=== PATIENT | female | born 1980 | race Caucasian/White ===

== ENCOUNTER 2016-11-29 15:34 | Emergency (ER) | payer OTHER ==
[~2016-11-29] VITALS: Ht 162.6 cm; Wt 79.4 kg
[2016-11-29] MEDS ORDERED: TRAZ50TA4 PO (15:47)
[2016-11-29] MEDS ORDERED: SERT-155 PO (15:47)
[2016-11-29] MEDS ORDERED: ROBA500T PO (15:47)
[2016-11-29] MEDS ORDERED: LEVO75TA4 PO (15:47)
[2016-11-29] MEDS ORDERED: NAPR500T2 PO (15:47)
[2016-11-29] MEDS ORDERED: NORC1TAB4 PO (15:47)
[2016-11-29] MEDS ORDERED: PANTOPRAZOLE 40MG INJ (PROTONIX) (C9113) IV ONE (16:30)
[2016-11-29 16:41] LABS: BASO % 0.2 % (0.0-1.0); EOS # 0.1 K/mm3 (0.0-0.50); EOS % 1.8 % (0.0-3.0); LARGE UNSTAINED CELL # 0.1 K/mm3 (0.0-0.4); LARGE UNSTAINED CELL % 0.6 % (0.0-4.0); LYMPH # 1.4 K/mm3 (1.5-4.5); LYMPH % 17.7 % (24.0-44.0); MEAN CORPUSCULAR HEMOGLOBIN 29.3 pg (27.0-33.0); MEAN CORPUSCULAR HGB CONC 33.1 g/dl (32.0-36.5); MEAN CORPUSCULAR VOLUME 88.6 fl (80.0-96.0); MONO # 0.4 K/mm3 (0.0-0.8); MONO % 5.3 % (0.0-5.0); NEUTROPHILS # 5.7 K/mm3 (1.8-7.7); NEUTROPHILS % 74.4 % (36.0-66.0); PLATELET COUNT, AUTOMATED 232 k/mm3 (150-450); RED CELL DISTRIBUTION WIDTH 13.6 % (11.5-14.5); WHITE BLOOD COUNT 7.7 K/mm3 (4.0-10.0)
[2016-11-29 16:55] LABS: ALBUMIN 4.1 GM/DL (3.2-5.2); ALBUMIN/GLOBULIN RATIO 1.28 (1.00-1.93); ALKALINE PHOSPHATASE 76 U/L (45-117); ALT/SGPT 43 U/L (12-78); ANION GAP 6 MEQ/L (8-16); AST/SGOT 26 U/L (15-37); BILIRUBIN,DIRECT < 0.1 MG/DL (0.0-0.2); BILIRUBIN,TOTAL 0.4 MG/DL (0.2-1.0); BLOOD UREA NITROGEN 12 MG/DL (7-18); CALCIUM LEVEL 8.3 MG/DL (8.5-10.1); CARBON DIOXIDE LEVEL 27 MEQ/L (21-32); CHLORIDE LEVEL 104 MEQ/L (98-107); CREATININE FOR GFR 0.98 MG/DL (0.55-1.02); GLOMERULAR FILTRATION RATE > 60.0 (>60); GLUCOSE, FASTING 126 MG/DL (70-105); POTASSIUM SERUM 3.8 MEQ/L (3.5-5.1); SODIUM LEVEL 137 MEQ/L (136-145); TOTAL PROTEIN 7.3 GM/DL (6.4-8.2)
[2016-11-29] MEDS ORDERED: PROT1TAB2 PO (17:19)
[2016-11-29 17:26] VITALS: BP 93/55
--- NOTE | 2016-11-30 20:58 | ECGEPIP ---
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
== END 2016-11-29 17:35 | disposition home or self-care (01) ==
LOC: M ED 16:38
DX: K29.60 Other gastritis without bleeding (principal); E03.9 Hypothyroidism, unspecified; F33.9 Major depressive disorder, recurrent, unspecified; G89.29 Other chronic pain; M54.9 Dorsalgia, unspecified; Z96.9 Presence of functional implant, unspecified; Z79.899 Other long term (current) drug therapy
CPT/HCPCS: 80048; 80076; 83690; 85025; 93005; 93041; 96374; 99284; C9113; G0463

== ENCOUNTER → 2016-12-16 | Outpatient (REF) | payer OTHER ==
[~2016-12-16] MED LIST: LEVO75TA4 PO; NAPR500T2 PO; NORC1TAB4 PO; PROT1TAB2 PO; ROBA500T PO; SERT-155 PO; TRAZ50TA4 PO
== END ==
LOC: M SFHCLERA 10:05
PROVIDERS: ATTEND Physician Assistant
DX: R50.9 Fever, unspecified (principal)

== ENCOUNTER → 2017-02-02 | Outpatient (REF) | payer OTHER | LOC: M LAB REF 13:24 | PROVIDERS: ATTEND Family Medicine | DX: B02.9 Zoster without complications (principal) ==

== ENCOUNTER 2017-05-20 21:07 | Emergency (ER) | payer OTHER ==
[~2017-05-20] VITALS: Ht 162.6 cm; Wt 77.3 kg
[~2017-05-20 21:07] MED LIST changes: -NAPR500T2 PO; +NAPR500T3 PO; +TRAZ50TA11 PO; -TRAZ50TA4 PO
[2017-05-20 21:08] VITALS: BP 118/67
[2017-05-20] MEDS ORDERED: COLA100C5 PO (21:24)
[2017-05-20] MEDS ORDERED: VITA500C14 PO (21:24)
[2017-05-20] MEDS ORDERED: WELLTAB40 PO (21:24)
[2017-05-20] MEDS ORDERED: AMBI10TA PO (21:24)
[2017-05-20] MEDS ORDERED: PRED10TA2 PO (21:54)
[2017-05-20] MEDS ORDERED: predniSONE 20 MG TAB PO ONE (22:00)
== END 2017-05-20 22:08 | disposition home or self-care (01) ==
LOC: M ED 21:07
DX: L50.9 Urticaria, unspecified (principal); T78.40XA Allergy, unspecified, initial encounter; E03.9 Hypothyroidism, unspecified; M54.5 Low back pain; F33.9 Major depressive disorder, recurrent, unspecified; Z79.899 Other long term (current) drug therapy

== ENCOUNTER 2017-06-18 19:43 | Emergency (ER) | payer OTHER ==
[~2017-06-18] VITALS: Ht 162.6 cm; Wt 75.0 kg
[~2017-06-18 19:43] MED LIST changes: +AMBI10TA PO; +COLA100C5 PO; +PRED10TA2 PO; +VITA500C14 PO; +WELLTAB40 PO
[2017-06-18] MEDS ORDERED: ZYRT10TA2 PO (20:06)
[2017-06-18] MEDS ORDERED: diphenhydrAMINE INJ 50MG/ML VIAL (J1200) IV ONE (20:45)
[2017-06-18] MEDS ORDERED: methylPREDNISolone INJ 125 MG/2 ML VIAL (J2930) IV ONE (20:45)
[2017-06-18] MEDS ORDERED: FAMOTIDINE IV BAG 20 MG in APPROPRIATE DILUENT 1 EA IV ONE (20:45)
[2017-06-18 21:01] LABS: EOS % 0.4 % (0.0-3.0); IMMATURE GRANULOCYTE % 0.1 % (0-0); LYMPH # 1.5 10^3/uL (1.5-4.5); LYMPH % 20.6 % (24.0-44.0); MEAN CORPUSCULAR HEMOGLOBIN 27.6 pg (27.0-33.0); MEAN CORPUSCULAR HGB CONC 33.3 g/dl (32.0-36.5); MEAN CORPUSCULAR VOLUME 82.7 fl (80.0-96.0); MONO # 0.6 10^3/uL (0.0-0.8); MONO % 7.9 % (0.0-5.0); NEUTROPHILS # 5.1 10^3/uL (1.8-7.7); PLATELET COUNT, AUTOMATED 229 10^3/uL (150-450); RED CELL DISTRIBUTION WIDTH 14.7 % (11.5-14.5); WHITE BLOOD COUNT 7.2 10^3/uL (4.0-10.0)
[2017-06-18 21:24] LABS: ANION GAP 6 MEQ/L (8-16); BLOOD UREA NITROGEN 14 MG/DL (7-18); CARBON DIOXIDE LEVEL 28 MEQ/L (21-32); CHLORIDE LEVEL 103 MEQ/L (98-107); CREATININE FOR GFR 0.96 MG/DL (0.55-1.02); GLOMERULAR FILTRATION RATE > 60.0 (>60); GLUCOSE, FASTING 82 MG/DL (70-105); POTASSIUM SERUM 3.5 MEQ/L (3.5-5.1); SODIUM LEVEL 137 MEQ/L (136-145)
[2017-06-18 22:20] VITALS: BP 120/75
== END 2017-06-18 22:31 | disposition home or self-care (01) ==
LOC: M ED 19:43
DX: T78.40XA Allergy, unspecified, initial encounter (principal); T78.3XXA Angioneurotic edema, initial encounter
CPT/HCPCS: 80048; 85025; 96374; 96375; 99284; J1200; J2930

== ENCOUNTER → 2017-07-14 | Outpatient (CLI) | payer OTHER ==
[~2017-07-14] MED LIST changes: +ZYRT10TA2 PO
[2017-07-14 10:09] LABS: ESTRADIOL 677.2 PG/ML; PROGESTERONE 27.5 NG/ML
== END ==
LOC: M LAB 09:02
PROVIDERS: ATTEND Obstetrics & Gynecology Reproductive Endocrinology
DX: N97.9 Female infertility, unspecified (principal)

== ENCOUNTER → 2017-07-20 | Outpatient (CLI) | payer OTHER ==
[2017-07-20 12:31] LABS: PROGESTERONE 24.1 NG/ML
[2017-07-20 14:25] LABS: HCG, SERUM QUANTITATIVE < 1.0 MIU/ML
== END ==
LOC: M LAB 11:10
PROVIDERS: ATTEND Obstetrics & Gynecology Reproductive Endocrinology
DX: N97.9 Female infertility, unspecified (principal)

== ENCOUNTER 2017-08-03 11:52 | Emergency (ER) | payer OTHER ==
[~2017-08-03] VITALS: Ht 162.6 cm; Wt 75.0 kg
[2017-08-03 11:52] VITALS: BP 113/72
[2017-08-03] MEDS ORDERED: BENA25CA4 PO (12:18)
[2017-08-03] MEDS ORDERED: predniSONE 20 MG TAB PO ONE (13:45)
[2017-08-03] MEDS ORDERED: PRED20TA PO (14:14)
== END 2017-08-03 14:20 | disposition home or self-care (01) ==
LOC: M ED 11:52
DX: L50.9 Urticaria, unspecified (principal); E07.9 Disorder of thyroid, unspecified; Z79.899 Other long term (current) drug therapy

== ENCOUNTER → 2017-08-04 | Outpatient (CLI) | payer OTHER ==
[~2017-08-04] MED LIST changes: +BENA25CA4 PO; +PRED20TA PO
== END ==
LOC: M LAB 09:39
PROVIDERS: ATTEND Family Medicine
DX: L50.9 Urticaria, unspecified (principal)

== ENCOUNTER → 2018-01-18 | Outpatient (CLI) | payer OTHER ==
[2018-01-18 09:19] LABS: HCG, SERUM QUANTITATIVE < 1.0 MIU/ML
[2018-01-18 10:53] LABS: PROGESTERONE 25.9 NG/ML
== END ==
LOC: M LAB 08:25
DX: E28.9 Ovarian dysfunction, unspecified (principal)
CPT/HCPCS: 84702

== ENCOUNTER → 2018-09-03 | Outpatient (REF) | payer OTHER ==
[~2018-09-03] MED LIST changes: +NAPR-885 PO; -NAPR500T3 PO; +TRAZ-160 PO; -TRAZ50TA11 PO; +ZYRT10CA5 PO; -ZYRT10TA2 PO
== END ==
LOC: M SFHCLERA 10:10
PROVIDERS: ATTEND Physician Assistant
DX: J02.9 Acute pharyngitis, unspecified (principal)